=== PATIENT | female | born 1960 | race African-American/Black ===

== ENCOUNTER 2017-02-27 09:01 | Day surgery (SDC) | payer OTHER ==
[2017-02-26 13:34] VITALS: BMI 47.7
[2017-02-27] MEDS ORDERED: LIDOCAINE HCL/PF 2% SDV 5ML VIAL ONE (10:59)
[2017-02-27] MEDS ORDERED: PROPOFOL 20 ML ONE ×3 (10:59)
[2017-02-27 11:57] VITALS: TEMP 97.8
[2017-02-27 12:45] VITALS: BP 142/82; PULSE 89
--- NOTE | 2017-03-02 16:55 | PATH ---
Surgical Pathology Report Patient Name: JOSE GUERIN [facility]. Rec. #: [id number] /Age/Gender: 1960 (Age: 57) / F Account: [id number] Location: [facility]-ENDOSCOPY Taken: 02/27/2017 Received: 02/27/2017 Reported: 03/02/2017 Physicians: Stephanie Reilly M.D. Specimen(s) Received BX CECAL POLYP Clinical History History of colon polyps Colon polyps Final Diagnosis CECUM, POLYP, BIOPSY: POLYPOID COLONIC MUCOSA WITH PROMINENT LYMPHOID AGGREGATES. Electronically Signed Yokasta Mcgee M.D. Gross Description Received in formalin labeled "cecum polyps," is a 1.0 x 0.8 x 0.2 cm aggregate of tinoco soft tissue fragments. The formalin is filtered and the specimen is entirely submitted in one cassette. /02/27/201702/27/2017
== END 2017-02-27 12:45 | disposition home or self-care (01) ==
LOC: JASU-ENDO 09:01
PROVIDERS: ATTEND Internal Medicine Gastroenterology
PROC: 0DBH8ZX Excision of Cecum, Via Natural or Artificial Opening Endoscopic, Diagnostic (ICD-10-PCS; principal; 2017-02-27 10:30)
DX: Z12.11 Encounter for screening for malignant neoplasm of colon (principal); Z86.010 Personal history of colon polyps; D12.0 Benign neoplasm of cecum; K64.8 Other hemorrhoids
CPT/HCPCS: 84703; 88305-TC